=== PATIENT | female | born 1940 | race Two or more races ===

== ENCOUNTER 2021-05-02 15:48 | Inpatient (IN) | payer MEDICARE, OTHER ==
[~2021-05-02] VITALS: Ht 160 cm; Wt 81.6 kg
[2021-05-02] MEDS ORDERED: LORAZEPAM 2 MG/1 ML VIAL IV ONE (16:00)
[2021-05-02] MEDS ORDERED: BENA40TA8 PO (16:12)
[2021-05-02] MEDS ORDERED: MIRT-93 PO (16:12)
[2021-05-02] MEDS ORDERED: QUET25TA PO (16:12)
[2021-05-02] MEDS ORDERED: CINA30TA2 PO (16:12)
[2021-05-02] MEDS ORDERED: TRAZ-257 PO (16:12)
[2021-05-02] MEDS ORDERED: APIX5TAB4 PO (16:12)
[2021-05-02] MEDS ORDERED: LORAZEPAM 2 MG/1 ML VIAL ONE (16:14)
[2021-05-02 16:58] LABS: HEMATOCRIT 36.2 % (31.2-41.9); MEAN CORPUSCULAR HEMOGLOBIN 33.1 uug (24.7-32.8); MEAN CORPUSCULAR VOLUME 94.5 fL (75.5-95.3); PLATELET COUNT (AUTO) 220 K/uL (179-408)
[2021-05-02 17:02] LABS: CREATININE 0.8 mg/dL (0.6-1.3); POTASSIUM 4.5 mmol/L (3.5-5.1)
[2021-05-02 17:08] LABS: BILIRUBIN,DIRECT 0.1 mg/dL (0.0-0.2); BILIRUBIN,TOTAL 0.3 mg/dL (0.2-1.0); TOTAL PROTEIN, SERUM 6.8 g/dL (6.4-8.2)
--- NOTE | 2021-05-02 17:40 | NUR ---
Patient is resting comfortably on gurney with eyes closed. She is calm at the moment but easily gets startled with soft touch (e.g. fixing her hospital socks). Patient is now waiting for available med-surgical bed and accepting nurse at this time.
--- NOTE | 2021-05-02 19:18 | NUR ---
Hands off report given to IVA Langley. Patient is waiting for accepting medical-surgical nurse & available room. Daughter is at bedside.
[2021-05-02] MEDS ORDERED: ONDANSETRON 4 MG/2 ML VIAL IV PRN (20:00)
[2021-05-02] MEDS ORDERED: ACETAMINOPHEN 650 MG SUPP.RECT RC PRN (20:00)
--- NOTE | 2021-05-02 20:20 | NUR ---
[facility] AM[facility] UNIT 29 AT BEDSIDE, GIVEN REPORT. TRANSPORTING PT TO [facility].
--- NOTE | 2021-05-02 20:58 | NUR ---
GAVE REPORT TO IVA HERBERT.
--- NOTE | 2021-05-02 21:11 | NUR ---
Pt. admitted to Med Surg Room 309 , under care of Dr. Parr Dx: GTube Malfunction Belongs List completed
[2021-05-02] MEDS ORDERED: LORAZEPAM 2 MG/1 ML VIAL IV PRN (21:15)
--- NOTE | 2021-05-02 21:15 | NUR ---
RECEIVED PATIENT VIA GURNEY FROM ER. PATIENT IS ALERT TO SELF ONLY, NIGERIEN SPEAKING ONLY. CONFUSED BUT ABLE TO MAKE SIMPLE NEEDS KNOWN. PATIENT C/O PAIN IN ABDOMEN. VS UPON ADMISSION. ON O2 2L NC SATING WELL. NPO ORDERED. H/L INTACT AND PATENT, NOTED TO RIGHT FA #20 GAUGE. BED ALARM ON. ALL NEEDS ATTENDED. WILL CONTINUE TO MONITOR AND ASSESS.
[2021-05-02 21:30] VITALS: BP 105/53
[2021-05-02] MEDS: IV D5 1/2 NS 1000 ML 1,000 ML IV PRN (21:35)
[2021-05-02] MEDS: MORPHINE SULFATE 2 MG/1 ML DISP.SYRIN IV PRN (21:52)
--- NOTE | 2021-05-02 22:00 | NUR ---
IVF INFUSING WELL TO RIGHT FA. PATIENT ON TELE V-PACING.
[2021-05-03] VITALS: BP 112/75
[2021-05-03 04:15] VITALS: BP 114/52
--- NOTE | 2021-05-03 06:44 | NUR ---
PATIENT ASLEEP IN BED. VSS. ON TELE V-PACING. SLEPT WELL. CALL LIGHT IN REACH. ALL NEEDS ATTENDED. WILL CONTINUE TO MONITOR AND ASSESS.
[2021-05-03 06:47] LABS: HEMATOCRIT 35.9 % (31.2-41.9); MEAN CORPUSCULAR HEMOGLOBIN 33.2 uug (24.7-32.8); MEAN CORPUSCULAR VOLUME 96.9 fL (75.5-95.3); PLATELET COUNT (AUTO) 211 K/uL (179-408)
--- NOTE | 2021-05-03 07:30 | NUR ---
Patient received in bed with eyes closed, but easily arousable. On O2 2L via NC with no SOB or difficulties breathing noted. No acute distress noted at this time. Right FA IV is intact running IVF at 70mL/h as ordered. No swelling or redness noted at this time. Continue NPO status. Fall precautions in place. Call light within easy reach. Will continue to monitor.
--- NOTE | 2021-05-03 07:40 | NUR ---
Patient is V-pacing on monitor with HR in low 60s at this time. Will continue to monitor.
[2021-05-03 07:55] LABS: BILIRUBIN,TOTAL 0.4 mg/dL (0.2-1.0); MAGNESIUM 2.2 mg/dL (1.8-2.4); PHOSPHOROUS 3.7 mg/dL (2.5-4.9); POTASSIUM 4.5 mmol/L (3.5-5.1); TOTAL PROTEIN, SERUM 6.5 g/dL (6.4-8.2)
[2021-05-03] MEDS: PANTOPRAZOLE SODIUM 40 MG VIAL IV SCH (08:00)
--- NOTE | 2021-05-03 09:00 | NUR ---
Patient's daughter Kiana at bedside. Informed her of NPO status and she expressed understanding.
[2021-05-03] MEDS: IV D5 1/2 NS 1000 ML 1,000 ML IV PRN (10:13)
--- NOTE | 2021-05-03 10:25 | NUR ---
Wound care nurse at bedside with new tx orders for sacral area: Z Guard and foam dressing noted at this time. Daughter at bedside agreeable with plan and expresses understanding. All needs met at this time. Will continue to monitor.
--- NOTE | 2021-05-03 10:26 | NUR ---
WOUND CARE CONSULT: PT PRESENTS WITH INCONTINENCE ASSOCIATED SKIN DAMAGE OVER SACRAL SCARRING, PRESENT ON ADMISSION. RECOMMENDATIONS MADE FOR SKIN PROTECTION. DISCUSSED WITH NURSING STAFF. IN AGREEMENT WITH PLAN OF CARE. Addendum: 05/03/21 at 1027 by SHERINE SANDERS RN Amended: Links added.
[2021-05-03] MEDS ORDERED: Z GUARD REMEDY PASTE 57 GM TUBE TOP PRN (10:30)
[2021-05-03 12:00] VITALS: BP 114/57
--- NOTE | 2021-05-03 14:30 | NUR ---
TRIED CONTACTING DR. HINTON AT [phone] AND NO RESPONSE. TRIED CALLING HIS OFFICE AND PER [employer]IPMENT INSTALLER, TOLD TO CALL A DIFFERENT NUMBER BECAUSE HE ISN'T THERE AT THIS TIME.
--- NOTE | 2021-05-03 14:34 | NUR ---
LEFT A MESSAGE WITH DR. HINTON AT [phone] REGARDING CONSULTATION FOR GT DISLODGEMENT.
[2021-05-03 16:00] VITALS: BP 142/65
[2021-05-03 19:03] LABS: *BILIRUBIN,URIN NEGATIVE (NEGATIVE); *BLOOD, URINE NEGATIVE (NEGATIVE); *CLARITY,URINE SLIGHTLY CLOUDY (CLEAR); *COLOR,URINE YELLOW (YELLOW); *KETONES,URINE NEGATIVE (NEGATIVE); *UROBILINOGEN,URINE 0.2 E.U./dl (NORMAL); LEUKOCYTE ESTERASE ,URINE 1+ (NEGATIVE); NITRITE, URINE NEGATIVE (NEGATIVE); UGLUCOSE NEGATIVE (NEGATIVE)
[2021-05-03 19:12] LABS: WBC,URINE 20-50 /HPF (0-3)
[2021-05-03 19:13] LABS: BACTERIA,URINE MODERATE /HPF (NONE SEEN); MUCUS,URINE FEW /LPF (0-FEW); SQUAMOUS EPITHELIAL CELL,UR FEW /HPF (NONE SEEN); URINE AMORPHOUS PHOSPHATES MODERATE /HPF
[2021-05-03 20:00] VITALS: BP 139/67
[2021-05-03] MEDS: MORPHINE SULFATE 2 MG/1 ML DISP.SYRIN IV PRN (20:10)
--- NOTE | 2021-05-03 20:15 | NUR ---
RECEIVED PATIENT AWAKE IN BED WITH DAUGHTER AT BEDSIDE. DAUGHTER ASKING IF HER MOTHER CAN HAVE SOMETHING FOR PAIN. VS WNL. PATIENT MOANING AND MAKING FACIAL GRIMACE. ALERT TO SELF ONLY. CONFUSED. PATIENT GIVEN MORPHINE 2MG IV PRN FOR PAIN. NO RESP. DISTRESS NOTED. IVF INFUSING WELL TO RIGHT FA #20 GAUGE. BED ALARM ON. CALL LIGHT IN REACH. ALL NEEDS ATTENDED, WILL CONTINUE TO MONITOR AND ASSESS.
[2021-05-03] MEDS: Z GUARD REMEDY PASTE 57 GM TUBE TOP SCH (21:40)
[2021-05-03] MEDS ORDERED: CEFTRIAXONE 1 G in IV DEXTROSE 5% 50 ML IV SCH (22:00)
[2021-05-03] MEDS ORDERED: CEFTRIAXONE /D5W 50ML IVPB **ER PYXIS IV ONE (22:11)
[2021-05-04] MEDS: IV D5 1/2 NS 1000 ML 1,000 ML IV PRN (01:27)
[2021-05-04 04:00] VITALS: BP 120/58
[2021-05-04] MEDS: MORPHINE SULFATE 2 MG/1 ML DISP.SYRIN IV PRN (06:06)
--- NOTE | 2021-05-04 06:15 | NUR ---
PATIENT CHANGED AND REPOSTIONED. PATIENT IS READY FOR SURGERY. NPO ORDERED. PATIENT APPEARS IN PAIN, FACIAL GRIMACING AND CRYING. PATIENT GIVEN MORPHINE 2MG IV PRN PER RN. VS WNL. H/L INTACT AND PATENT WITH IVF INFUSING. BED ALARM ON. CALL LIGHT IN REACH. ALL NEEDS ATTENDED, WILL CONTINUE TO MONITOR AND ASSESS.
--- NOTE | 2021-05-04 09:10 | NUR ---
Received patient from surgery, post EGD and PEG placement. Vital signs WNL. IV access on left hand. No signs of acute distress. Will continue to monitor.
[2021-05-04 09:23] VITALS: BP 96/42
[2021-05-04 09:35] VITALS: BP 120/41
[2021-05-04] MEDS: Z GUARD REMEDY PASTE 57 GM TUBE TOP SCH (09:37)
[2021-05-04] MEDS: PANTOPRAZOLE SODIUM 40 MG VIAL IV SCH (09:37)
[2021-05-04 09:45] VITALS: BP 118/55
[2021-05-04 10:28] VITALS: BP 131/55
[2021-05-04] MEDS ORDERED: JEVITY 1.2 1000 ML LIQUID GT SCH (13:00)
[2021-05-04] MEDS ORDERED: FAMO-132 GT (13:04)
[2021-05-04] MEDS ORDERED: CEPH500C2 GT (13:04)
[2021-05-04 15:29] VITALS: BP 121/49
[2021-05-04] MEDS ORDERED: PROPOFOL 200 MG/20 ML BOTTLE IV ONE (16:29)
[2021-05-04] MEDS ORDERED: LIDOCAINE-MPF 2% 5 ML VIAL MC ONE (16:29)
[2021-05-04] MEDS ORDERED: CEFAZOLIN 1 G VIAL MC ONE (16:29)
--- NOTE | 2021-05-04 16:33 | NUR ---
Discharged patient to home with HH. Patient AOx1. On 2L O2 via NC. Patient denies pain/ discomfort. Discharge instructions given to daughter at bedside. Belongings accounted for and belongings list signed. IV access removed. ID armband removed. Patient left hospital via ambulance gurney.
== END 2021-05-04 16:30 | disposition home health service (06) | DRG 394 ==
LOC: ER 15:51 → MEDSURG3 20:58 → TELE3 21:48
PROVIDERS: ADMIT Internal Medicine; ATTEND Internal Medicine
PROC: 0D20XUZ Change Feeding Device in Upper Intestinal Tract, External Approach (ICD-10-PCS; principal; 2021-05-04)
PROC: 0DJ08ZZ Inspection of Upper Intestinal Tract, Via Natural or Artificial Opening Endoscopic (ICD-10-PCS; principal; 2021-05-04)
DX: Z43.1 Encounter for attention to gastrostomy (principal); G93.40 Encephalopathy, unspecified; N39.0 Urinary tract infection, site not specified; F03.90 Unspecified dementia, unspecified severity, without behavioral disturbance, psychotic disturbance, mood disturbance, and anxiety; I10 Essential (primary) hypertension; I48.91 Unspecified atrial fibrillation; K29.70 Gastritis, unspecified, without bleeding; R13.10 Dysphagia, unspecified; Z79.01 Long term (current) use of anticoagulants; E66.9 Obesity, unspecified; Z68.31 Body mass index [BMI] 31.0-31.9, adult; I11.9 Hypertensive heart disease without heart failure; Z20.822 Contact with and (suspected) exposure to COVID-19; Z85.3 Personal history of malignant neoplasm of breast
CPT/HCPCS: 36415; 70030-TC; 71045; 83735; 84100; 84443; 85025; 85610; 87077; 87086; 93005; A4217; A4663; A6209; C1758; C9113; G0378; J0690; J0696; J2060; J2270; J3490; J7030; J7060